=== PATIENT | male | born 1990 | race Caucasian/White ===

== ENCOUNTER 2019-01-09 14:33 | Emergency (ER) | payer MEDICAID ==
[~2019-01-09] VITALS: Ht 170.2 cm; Wt 84.0 kg
[2019-01-09 14:50] VITALS: BP 109/70
[2019-01-09] MEDS ORDERED: FLUT16SP2 BOTHNARES (15:21)
[2019-01-09] MEDS ORDERED: CETI-102 PO (15:21)
== END 2019-01-09 15:29 | disposition home or self-care (01) ==
LOC: ER 14:34
DX: J39.2 Other diseases of pharynx (principal); J30.9 Allergic rhinitis, unspecified; Z56.0 Unemployment, unspecified; Z79.899 Other long term (current) drug therapy
CPT/HCPCS: 99283

== ENCOUNTER 2019-01-31 20:55 | Emergency (ER) | payer MEDICAID ==
[~2019-01-31] VITALS: Ht 172.7 cm; Wt 90.0 kg
[~2019-01-31 20:55] MED LIST: CETI-102 PO; FLUT16SP2 BOTHNARES
[2019-01-31 21:04] VITALS: BP 165/99
== END 2019-01-31 21:33 | disposition home or self-care (01) ==
LOC: ER 20:56
DX: J32.9 Chronic sinusitis, unspecified (principal); Z56.0 Unemployment, unspecified
CPT/HCPCS: 99281